=== PATIENT | male | born 1980 | race Caucasian/White ===

== ENCOUNTER 2018-07-24 14:36 | Emergency (ER) | payer OTHER ==
[~2018-07-24] VITALS: Ht 167.6 cm; Wt 74.4 kg
[2018-07-24] MEDS ORDERED: POLY BACITRAC28.3 GM TOP (18:16)
[2018-07-24] MEDS ORDERED: SILVER SULFADIA50 GM TOP (18:16)
[2018-07-24] MEDS ORDERED: Percocet 5-3251 EACH PO (18:16)
== END 2018-07-24 18:41 | disposition home or self-care (01) ==
LOC: ER 14:36
DX: T20.27XA Burn of second degree of neck, initial encounter (principal); T21.22XA Burn of second degree of abdominal wall, initial encounter; T21.21XA Burn of second degree of chest wall, initial encounter; T22.20XA Burn of second degree of shoulder and upper limb, except wrist and hand, unspecified site, initial encounter; T31.0 Burns involving less than 10% of body surface; Z23 Encounter for immunization; X12.XXXA Contact with other hot fluids, initial encounter
CPT/HCPCS: 90714; J1885; J2060; J3010; J7030